=== PATIENT | female | born 1975 | race Caucasian/White ===

== ENCOUNTER 2018-11-12 00:25 | Emergency (ER) | payer MEDICAID ==
[~2018-11-12] VITALS: Ht 142.2 cm; Wt 99.8 kg
[~2018-11-12 00:25] MED LIST: [UNRECOGNIZED DRUG - CODE] PO
--- NOTE | 2018-11-12 00:25 | NUR ---
PT JL ALS. TAKEN TO BED 10
[2018-11-12 00:32] VITALS: BP 140/53
--- NOTE | 2018-11-12 00:35 | NUR ---
PATIENT PRESENTS TO ED WITH C/O L ABDOMINAL PAIN THAT RADIATES TO LOWER BACK. PT STATES THIS HAS BEEN GOING ON FOR A YEAR, USUALLY COMES AND COMES BUT THIS TIME IT LAST LONGER THAN NORMAL. NAUSEA AND VOMITTED X1 TODAY; SKIN IS PINK/WARM/DRY; ABDOMEN TENDER UPON PALPATION. AAOX4; PATIENT STATES PAIN OF 10/10 AT THIS TIME; VSS; BEDRAILS UP X2; BED DOWN. ER MD MADE AWARE OF PT STATUS. WILL CONTINUE TO MONITOR.
[2018-11-12] MEDS ORDERED: DICYCLOMINE HCL LIQUID 20 MG, ALUMINUM HYD/MAG/SIMETHICONE 30 ML, LIDOCAINE VISCOUS 2% ... PO ONE ×3 (01:05)
[2018-11-12 01:23] LABS: BASOPHILS # (AUTO) 0.1 K/uL (0.00-0.22); BASOPHILS % (AUTO) 0.7 % (0.0-2.0); EOSINOPHILS # (AUTO) 0.1 K/uL (0-0.4); EOSINOPHILS % (AUTO) 0.8 % (0.0-4.0); LYMPHOCYTES # (AUTO) 1.3 K/uL (2.5-16.5); LYMPHOCYTES % (AUTO) 14.3 % (20.5-51.1); MEAN CORPUSCULAR HEMOGLOBIN 17 pg (27-31); MEAN CORPUSCULAR HGB CONC 28 g/dL (33-37); MEAN CORPUSCULAR VOLUME 59.1 fL (80-94); MONOCYTES # (AUTO) 0.4 K/uL (0.8-1.0); NEUTROPHILS # (AUTO) 7.3 K/uL (1.8-7.7); NEUTROPHILS % (AUTO) 80.2 % (42.2-75.2); PLATELET COUNT (AUTO) 276 K/uL (140-450); RED CELL DISTRIBUTION WIDTH 20.9 % (11.6-13.7); WHITE BLOOD COUNT (AUTO) 9.1 K/uL (4.8-10.8)
[2018-11-12 01:32] LABS: ANION GAP 11.7 (8-16); CARBON DIOXIDE 27.1 mmol/L (21-32); CREATININE 0.7 mg/dL (0.6-1.3); POTASSIUM 3.8 mmol/L (3.5-5.1)
--- NOTE | 2018-11-12 01:32 | NUR ---
URINE COLLECTED AND SENT TO LAB
[2018-11-12 01:33] LABS: APPEARANCE,URINE SL CLOUDY (CLEAR); BILIRUBIN,URINE NEGATIVE (NEGATIVE); BLOOD, URINE NEGATIVE (NEGATIVE); COLOR,URINE YELLOW (YELLOW); LEUKOCYTE ESTERASE ,URINE NEGATIVE (NEGATIVE); NITRITE, URINE NEGATIVE (NEGATIVE); PH,URINE 7.5 (5.0-9.0); UGLUCOSE NEGATIVE (NEGATIVE)
[2018-11-12 01:38] LABS: ALBUMIN 3.4 g/dL (3.4-5.0); TOTAL BILIRUBIN 0.3 mg/dL (0.0-1.0)
[2018-11-12 01:40] LABS: HEMATOCRIT 19.5 % (36-48); HEMOGLOBIN 6.5 g/dL (12.0-16.0)
--- NOTE | 2018-11-12 01:40 | NUR ---
Critical Hgb 6.5 and Hct 19.5. MD aware.
--- NOTE | 2018-11-12 01:48 | NUR ---
Pt taken to CT.
--- NOTE | 2018-11-12 01:57 | NUR ---
PT RETURN FROM CT
--- NOTE | 2018-11-12 01:59 | NUR ---
PT AMBULATES TO RESTROOM WITH STEADY GAIT.
--- NOTE | 2018-11-12 02:10 | NUR ---
CHAPPERONED AT BEDSIDE AT THIS TIME
[2018-11-12 03:40] VITALS: BP 117/55
--- NOTE | 2018-11-12 03:40 | NUR ---
Patient discharged with v/s stable. Written and verbal after care instructions given and explained. Patient alert, oriented and verbalized understanding of instructions. Ambulatory with steady gait. All questions addressed prior to discharge. ID band removed. Patient advised to follow up with PMD. Rx of Ferrous Sulfate and Mylanta given. Patient educated on indication of medication including possible reaction and side effects. Opportunity to ask questions provided and answered.
== END 2018-11-12 03:40 | disposition home or self-care (01) ==
LOC: MED 00:25
DX: R10.13 Epigastric pain (principal); D64.9 Anemia, unspecified; I10 Essential (primary) hypertension; Z79.899 Other long term (current) drug therapy
CPT/HCPCS: 36415; 80053; 81003; 81025; 83690; 85025; 99284

== ENCOUNTER 2018-11-22 19:55 | Emergency (ER) | payer MEDICAID ==
[~2018-11-22] VITALS: Ht 142.2 cm; Wt 103.2 kg
[2018-11-22 20:10] VITALS: BP 150/88
--- NOTE | 2018-11-22 20:14 | NUR ---
TO LOBBY LILLI, A/W GARRY VARGAS NOTED
--- NOTE | 2018-11-22 20:49 | NUR ---
PT AMBULATED TO BED 4 WITH VSS.
[2018-11-22 20:55] LABS: BASOPHILS # (AUTO) 0.1 K/uL (0.00-0.22); EOSINOPHILS # (AUTO) 0.1 K/uL (0-0.4); HEMATOCRIT 24.1 % (36-48); LYMPHOCYTES # (AUTO) 1.5 K/uL (2.5-16.5); LYMPHOCYTES % (AUTO) 13.5 % (20.5-51.1); MEAN CORPUSCULAR HGB CONC 28 g/dL (33-37); MONOCYTES # (AUTO) 0.4 K/uL (0.8-1.0)
[2018-11-22 21:00] LABS: BASOPHILS % (AUTO) 0.8 % (0.0-2.0); EOSINOPHILS % (AUTO) 0.7 % (0.0-4.0); MEAN CORPUSCULAR HEMOGLOBIN 17 pg (27-31); MEAN CORPUSCULAR VOLUME 59.3 fL (80-94); MONOCYTES % (AUTO) 3.8 % (1.7-9.3); NEUTROPHILS # (AUTO) 9.1 K/uL (1.8-7.7); NEUTROPHILS % (AUTO) 81.2 % (42.2-75.2); PLATELET COUNT (AUTO) 247 K/uL (140-450); RED BLOOD CELL COUNT(AUTO) 4.07 MIL/uL (4.20-5.40); RED CELL DISTRIBUTION WIDTH 21.7 % (11.6-13.7); WHITE BLOOD COUNT (AUTO) 11.2 K/uL (4.8-10.8)
[2018-11-22 21:04] LABS: HEMOGLOBIN 6.8 g/dL (12.0-16.0)
--- NOTE | 2018-11-22 21:05 | NUR ---
43/F PRESENTS TO ED, C/O 03/13 DIFFUSE ABD PAIN, X4-5 HRS. PT REPORTS N/V X2 TODAY. PT DENIES FEVER, CONSTIPATION OR DIARRHEA, OR DYSURIA. AOX4, GCS 15, SKIN NORMAL WARM AND DRY, RR EVEN AND UNLABORED. LUNG SOUNDS CLEAR BL. BS ACTIVE X4, ABD SOFT ROUND LARGE TENDER DIFFUSELY. HX HTN
[2018-11-22] MEDS ORDERED: NACL 0.9% 1,000 ML IV SCH (21:06)
[2018-11-22 21:07] LABS: ALBUMIN 3.5 g/dL (3.4-5.0); CARBON DIOXIDE 25.8 mmol/L (21-32); CREATININE 0.5 mg/dL (0.6-1.3); POTASSIUM 3.8 mmol/L (3.5-5.1); TOTAL BILIRUBIN 0.3 mg/dL (0.0-1.0)
--- NOTE | 2018-11-22 21:30 | NUR ---
PER ER MD, ORDER FOR 1L NS BOLUS WILL BE CANCELLED
--- NOTE | 2018-11-22 21:30 | NUR ---
PER ER MD, BLOOD TRANSFUSION NOT INDICATED AT THIS TIME DESPITE HGB 6.8; PT IS ASYMPTOMATIC, DENIES CP, SOB, DIZZINESS, WEAKNESS, AND IS HEMODYNAMICALLY STABLE.
--- NOTE | 2018-11-22 22:31 | NUR ---
PT LAYING IN BED, RR EVEN AND UNLABORED. DENIES ABD PAIN OR ANY PAIN AT THIS TIME. VSS. ALL NEEDS MET AT THIS TIME.
--- NOTE | 2018-11-22 23:11 | NUR ---
PT VSS, PT IS ASYMPTOMATIC, DENIES ANY CP, SOB, DIZZINESS OR WEAKNESS. DENIES ANY PAIN AT THIS TIME.
[2018-11-22 23:12] VITALS: BP 121/48
--- NOTE | 2018-11-22 23:12 | NUR ---
Patient discharged with v/s stable. Written and verbal after care instructions given and explained. Patient alert, oriented and verbalized understanding of instructions. Ambulatory with steady gait. All questions addressed prior to discharge. ID band removed. Patient advised to follow up with PMD. Rx of PRILOSEC, MOTRIN, ZOFRAN, NORCO given. Patient educated on indication of medication including possible reaction and side effects. Opportunity to ask questions provided and answered.
== END 2018-11-22 23:12 | disposition home or self-care (01) ==
LOC: MED 19:55
DX: D25.9 Leiomyoma of uterus, unspecified (principal); D64.9 Anemia, unspecified; I10 Essential (primary) hypertension; Z90.49 Acquired absence of other specified parts of digestive tract; Z79.899 Other long term (current) drug therapy
CPT/HCPCS: 36415; 71045; 80053; 81002; 81025; 83690; 85025; 86886; 86900; 86901; 93005; 99284